=== PATIENT | male | born 1970 | race Caucasian/White ===

== ENCOUNTER 2020-03-11 12:31 | Emergency (ER) | payer BC ==
[2020-03-11] MEDS ORDERED: SODIUM CHLORIDE 1,000 ML IV STA (12:41)
--- NOTE | 2020-03-11 12:42 | PDOC ---
Rapid Medical Evaluation Time Seen by Provider: 03/11/20 12:38 Medical Evaluation: 03/11/20 12:38 Pt presents to the ER for lightheadedness/dizziness. States he was working outside when he suddenly got lightheaded and felt like he was going to pass out. States he feels better now. Denies LOC, head trauma. Currently on Doxycycline for a tick bite. Exam: neurologically intact, NAD Orders: EKG, fluids, labs Pt to proceed to the ER for further evaluation Discharge Disposition - Diagnosis Near syncope - Referrals - Patient Instructions - Post Discharge Activity
[2020-03-11 12:45] VITALS: TEMP 98.2; BMI 32.2
--- NOTE | 2020-03-11 14:41 | PDOC ---
History of Present Illness - General Chief Complaint: Lightheaded Stated Complaint: DIZZY/LIGHTHEADED Time Seen by Provider: 03/11/20 12:38 History Source: Patient Exam Limitations: No Limitations - History of Present Illness Initial Comments: 03/11/20 14:41 49-year-old male presents to ED status post near syncopal episode while at work today. Patient states was at work when he started to have tingling, dizziness and almost fainted. 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 Patient was started on doxycycline 100 mg twice daily on Tuesday for tick bite on Tuesday. Patient was directed to the ER by his primary care physician Dr. Nam Rossi. Patient denies any chest pain, shortness of breath, visual changes, headache fever or chills prior or during episode. patient denies medical history recent travel, recent illness Is this a multiple visit Asthma Patient?: No Timing/Duration: changing over time Severity: mild Associated Symptoms: reports: diaphoresis, malaise, syncope (near), weakness Past History - Travel History Traveled outside of the country in the last 30 days: No Close contact w/someone who was outside of country & ill: No - Medical History Allergies/Adverse Reactions: Allergies Allergy/AdvReac Type Severity Reaction Status Date / Time No Known Allergies Allergy Verified 03/11/20 12:42 CVA: No COPD: No - Psycho-Social/Smoking History Patient Lives Alone: No Lives with/in: parents Smoking History: Never smoked Have you smoked in the past 12 months: No Information on smoking cessation initiated: No - Substance Abuse Hx (Audit-C & DAST Scrn) How often the patient has a drink containing alcohol: Never Score: In Men: 4 or > Positive; In Women: 3 or > Positive: 0 Screen Result (Pos requires Nsg. Audit-10AR): Negative Review of Systems - Review of Systems Able to Perform ROS?: No Is the patient limited Egyptian proficient: No Constitutional: Yes: Weakness HEENTM: No: Symptoms Reported Respiratory: No: Symptoms reported Cardiac (ROS): Yes: Lightheadedness, Syncope ABD/GI: No: Symptoms Reported : No: Symptoms Reported Musculoskeletal: No: Symptoms Reported Integumentary: No: Symptoms Reported Neurological: Yes: Tingling Endocrine: No: Symptoms Reported Hematologic/Lymphatic: No: Symptoms Reported *Physical Exam - Vital Signs Last Vital Signs Temp Pulse Resp BP Pulse Ox 98.2 F 72 20 153/82 99 03/11/20 12:42 03/11/20 14:02 03/11/20 12:42 03/11/20 14:02 03/11/20 12:42 - Physical Exam General Appearance: Yes: Nourished, Appropriately Dressed HEENT: positive: LORI. negative: Pale Conjunctivae Neck: positive: Supple Respiratory/Chest: positive: Lungs Clear, Normal Breath Sounds. negative: Respiratory Distress, Accessory Muscle Use Cardiovascular: positive: Regular Rhythm, Regular Rate. negative: Murmur Gastrointestinal/Abdominal: positive: Soft. negative: Tenderness Integumentary: positive: Normal Color, Warm, Moist Neurologic: positive: Motor Strength 5/5 (ambulatory) Heart Score/ECG Review - ECG Intrepretation Rhythm: Regular Rhythm (Sinus bradycardia. Rate 59. No ST elevation or depression. Intervals are regular.) ED Treatment Course - LABORATORY CBC & Chemistry Diagram: 03/11/20 14:00 03/11/20 14:00 - Medications Given in the ED: ED Medications Discontinued Medications Generic Name Dose Route Start Last Admin Trade Name Freq PRN Reason Stop Dose Admin Sodium Chloride 1,000 mls @ 1,000 mls/hr 03/11/20 12:41 03/11/20 14:04 Normal Saline - IV 03/11/20 13:40 1,000 mls/hr ASDIR STA Administration Medical Decision Making - Medical Decision Making 03/11/20 14:46 Chief complaint: Patient near syncopal episode also with tingling and dizziness since this morning. Patient works outside he received prescribed doxycycline. No other complaints. Exam: Patient was found to be orthostatic with a 20 point gradient and a elevated elevation heart rate of 16 bpm. Otherwise normal PE. Plan: Labs, EKG, fluids and will contact patient's primary care physician. 03/11/20 15:31 Laboratory Tests 03/11/20 03/11/20 14:00 14:00 WBC 6.4 Hgb 13.8 Hct 41.0 Neutrophils % 60.9 Sodium 140 Potassium 3.9 Chloride 106 Carbon Dioxide 29 Anion Gap 5 L BUN 22.6 H Creatinine 0.8 Est GFR (CKD-EPI)AfAm 120.72 Est GFR (CKD-EPI)NonAf 104.16 Random Glucose 71 L Calcium 8.8 Total Bilirubin 0.4 AST 17 ALT 27 Alkaline Phosphatase 78 Creatine Kinase 249 Creatine Kinase Index Pending CK-MB (CK-2) Pending Troponin I < 0.02 Total Protein 7.3 Albumin 4.4 Discharge - Discharge Information Problems reviewed: Yes Clinical Impression/Diagnosis: Near syncope, Hypoglycemia Condition: Improved Disposition: HOME - Follow up/Referral Referrals: Nam Rossi MD [Primary Care Provider] - - Patient Discharge Instructions Patient Printed Discharge Instructions: Doxycycline - Post Discharge Activity Work/Back to School Note: Back to Work
[2020-03-11 14:45] LABS: BASO % 0.4 % (0-2.0); EOS % 1.7 % (0-4.5); HEMOGLOBIN 13.8 GM/dL (11.7-16.9); LYMPH % 27.2 % (8-40); MCH 31.9 pg (25.7-33.7); MCHC 33.8 g/dl (32.0-35.9); MEAN CELL VOLUME 94.4 fl (80-96); MEAN PLT VOLUME 7.6 fl (7.5-11.1); MONO % 9.8 % (3.8-10.2); NEUT % 60.9 % (42.8-82.8); PLATELET COUNT 214 K/MM3 (134-434); RBC 4.34 M/mm3 (4.00-5.60); RDW 12.5 % (11.9-15.9); WHITE BLOOD COUNT 6.4 K/mm3 (4.0-10.0)
[2020-03-11 15:16] LABS: ALBUMIN 4.4 g/dl (3.4-5.0); ALK PHOS 78 U/L (45-117); ANION GAP 5 MMOL/L (8-16); BILIRUBIN,TOTAL 0.4 mg/dL (0.2-1); BLOOD UREA NITROGEN 22.6 mg/dL (7-18); CALCIUM 8.8 mg/dL (8.5-10.1); CHLORIDE 106 mmol/L (98-107); CO2 29 mmol/L (21-32); CREATININE 0.8 mg/dL (0.55-1.3); GLUCOSE,RANDOM 71 mg/dL (74-106); POTASSIUM 3.9 mmol/L (3.5-5.1); SGOT/AST 17 U/L (15-37); SGPT/ALT 27 U/L (13-61); SODIUM 140 mmol/L (136-145); TOT PROT 7.3 g/dl (6.4-8.2)
[2020-03-11 15:43] VITALS: BP 142/96; PULSE 68
--- NOTE | 2020-03-12 09:21 | EKG ---
Test Reason : Blood Pressure : / mmHG Vent. Rate : 059 BPM Atrial Rate : 059 BPM P-R Int : 180 ms QRS Dur : 102 ms QT Int : 434 ms P-R-T Axes : 007 -49 042 degrees QTc Int : 429 ms SINUS BRADYCARDIA LEFT ANTERIOR FASCICULAR BLOCK CANNOT RULE OUT INFERIOR INFARCT (MASKED BY FASCICULAR BLOCK?) , AGE UNDETERMINED ABNORMAL ECG WHEN COMPARED WITH ECG OF 04-JUL-2003 12:42, LEFT ANTERIOR FASCICULAR BLOCK IS NOW PRESENT MINIMAL CRITERIA FOR INFERIOR INFARCT ARE NOW PRESENT T WAVE AMPLITUDE HAS INCREASED IN ANTEROLATERAL LEADS Confirmed by MD ALCON, LURDES ([id number]) on 03/12/2020 9:21:08 AM Referred By: Confirmed By:LURDES RONDON MD
== END 2020-03-11 15:43 | disposition home or self-care (01) ==
LOC: JER 12:31
PROC: 3E0337Z Introduction of Electrolytic and Water Balance Substance into Peripheral Vein, Percutaneous Approach (ICD-10-PCS; principal; 2020-03-11)
DX: R55 Syncope and collapse (principal); E16.2 Hypoglycemia, unspecified
CPT/HCPCS: 36415; 80053; 82550; 82553; 84484; 85025; 93005; 93010; 99284-25